=== PATIENT | male | born 1960 | race Caucasian/White ===

== ENCOUNTER 2017-09-23 00:35 | Emergency (ER) | payer OTHER ==
[~2017-09-23] VITALS: Ht 172.7 cm; Wt 105.0 kg
--- NOTE | 2017-09-23 00:47 | PD ---
HPI Chief Complaint: overdose/ba Time Seen by Provider: 00:45 Travel History International Travel<30 days: No Contact w/Intl Traveler<30days: No Traveled to known affect area: No History of Present Illness HPI 49-year-old male with history of alcohol dependency and depression presents to emergency department under Sunshine act for psychiatric evaluation. Patient states that he has been drinking a large amount of alcohol. He took a handful of Xanax. He tells me that he "wants to ." Is asking me to "just let him ." Patient denies any recent illnesses, fever, or chills. He is poor offering any medical history. Denies any acute medical needs at this time. [facility] [place] Past Medical History Medical History: Unable to Obtain Social History Alcohol Use: Yes Tobacco Use: Yes Allergies-Medications (Allergen,Severity, Reaction): Coded Allergies: No Allergy Information Available (Unverified , 09/23/17) Reported Meds & Prescriptions Reported Meds & Active Scripts Active Active Prescriptions or Reported Medications Unobtainable Review of Systems Except as stated in HPI: all other systems reviewed are Neg Physical Exam Narrative GENERAL: Well-nourished male patient, acutely intoxicated with slurred speech and a unsteady gait, but in no acute distress. SKIN: Focused skin assessment warm/dry. 6 centimeter laceration the posterior right elbow. Bleeding is controlled. HEAD: Atraumatic. Normocephalic. EYES: Pupils equal and round. No scleral icterus. No injection or drainage. ENT: No nasal bleeding or discharge. Mucous membranes pink and moist. NECK: Trachea midline. No JVD. CARDIOVASCULAR: Tachycardic rate and irregular rhythm. RESPIRATORY: No accessory muscle use. Clear to auscultation. Breath sounds equal bilaterally. GASTROINTESTINAL: Abdomen soft, non-tender, nondistended. Hepatic and splenic margins not palpable. MUSCULOSKELETAL: No obvious deformities. No clubbing. No cyanosis. No edema. NEUROLOGICAL: Awake. I am unable to assess cranial nerves. Patient is moving all extremities. Slurred speech. Data Data Last Documented VS Vital Signs Date Time Temp Pulse Resp B/P (MAP) Pulse Ox O2 Delivery O2 Flow Rate FiO2 09/23/17 04:30 112 20 137/73 (94) 98 Nasal Cannula 2.00 09/23/17 01:34 98.4 Orders Orders Complete Blood Count With Diff (09/23/17 00:47) Comprehensive Metabolic Panel (09/23/17 00:47) Electrocardiogram (09/23/17 00:47) Oximetry (09/23/17 00:47) Iv Access Insert/Monitor (09/23/17 00:47) Ecg Monitoring (09/23/17 00:47) Psych Screen (09/23/17 00:47) Blood Glucose (09/23/17 00:47) Drug Screen, Random Urine (09/23/17 00:47) Alcohol (Ethanol) (09/23/17 00:47) Salicylates (Aspirin) (09/23/17 00:47) Tylenol (Acetaminophen) (09/23/17 00:47) Restraints Violent (09/23/17 01:00) Haloperidol Inj (Haldol Inj) (09/23/17 01:00) Sodium Chlor 0.9% 1000 Ml Inj (Ns 1000 M (09/23/17 01:30) Diltiazem Inj (Cardizem Inj) (09/23/17 02:45) Diltiazem Inj (Cardizem Inj) (09/23/17 03:00) Labs Laboratory Tests Test 09/23/17 01:15 White Blood Count 8.9 TH/MM3 Red Blood Count 4.92 MIL/MM3 Hemoglobin 16.8 GM/DL Hematocrit 47.6 % Mean Corpuscular Volume 96.8 FL Mean Corpuscular Hemoglobin 34.1 PG Mean Corpuscular Hemoglobin Concent 35.2 % Red Cell Distribution Width 13.1 % Platelet Count 189 TH/MM3 Mean Platelet Volume 8.4 FL Neutrophils (%) (Auto) 50.7 % Lymphocytes (%) (Auto) 38.4 % Monocytes (%) (Auto) 8.9 % Eosinophils (%) (Auto) 1.1 % Basophils (%) (Auto) 0.9 % Neutrophils # (Auto) 4.5 TH/MM3 Lymphocytes # (Auto) 3.4 TH/MM3 Monocytes # (Auto) 0.8 TH/MM3 Eosinophils # (Auto) 0.1 TH/MM3 Basophils # (Auto) 0.1 TH/MM3 CBC Comment DIFF FINAL Differential Comment Blood Urea Nitrogen 14 MG/DL Creatinine 0.82 MG/DL Random Glucose 134 MG/DL Total Protein 8.1 GM/DL Albumin 3.9 GM/DL Calcium Level 8.1 MG/DL Alkaline Phosphatase 106 U/L Aspartate Amino Transf (AST/SGOT) 35 U/L Alanine Aminotransferase (ALT/SGPT) 45 U/L Total Bilirubin 0.2 MG/DL Sodium Level 140 MEQ/L Potassium Level 3.9 MEQ/L Chloride Level 108 MEQ/L Carbon Dioxide Level 21.8 MEQ/L Anion Gap 10 MEQ/L Estimat Glomerular Filtration Rate 96 ML/MIN Salicylates Level 4.0 MG/DL Urine Opiates Screen NEG Acetaminophen Level LESS THAN 2.0 MCG/ML Urine Barbiturates Screen NEG Urine Amphetamines Screen NEG Urine Benzodiazepines Screen NEG Urine Cocaine Screen NEG Urine Cannabinoids Screen NEG Ethyl Alcohol Level 313 MG/DL MDM Medical Decision Making Medical Screen Exam Complete: Yes Emergency Medical Condition: Yes Medical Record Reviewed: Yes Differential Diagnosis Mood disorder versus personality disorder versus adjustment reaction disorder versus substance abuse Narrative Course 49-year-old male presents to emergency department for evaluation under Sunshine. Patient alleges that he took a handful of Xanax. He is not how much this is. This is in addition to drinking large amount alcohol. He does report this as an active attempt to end his life. Lab work is complete and reviewed without any acute concern. I discussed the patient my attending physician. EKG is with A. fib with RVR. Patient was given Cardizem bolus and temporalis was draped with any increases 120-150 bpm. Patient is given additional bolus and heart rate has slowed to 100 -120 bpm. Patient is denying any chest or tightness. No shortness of breath. He'll be observed until 6 AM Auch time he' ll be medically cleared for psychiatric screening for further evaluation and disposition. Mental health screening discussed with the patient. Psychiatric screen ordered. 0600 patient is resting comfortably. He is arousable. He is more cooperative. He does confirm history of A. fib. He is medically cleared to undergo psychiatric screening for further evaluation and disposition. Procedures Procedure Narrative LACERATION LOCATION: Elbow LENGTH:6 centimeters NUMBER OF STITCHES/VILLA: 4 Villa REPAIR: The area of the laceration was prepped with Betadine and sterilely draped. The wound was copiously irrigated and explored without evidence of foreign body, tendon injury or neurovascular injury. The wound was closed using villa. This was a single layer repair. Patient tolerated this well. Diagnosis Primary Impression: Substance induced mood disorder Additional Impression: A-fib Qualified Codes: I48.91 - Unspecified atrial fibrillation Scripts Unable to Obtain Active Prescriptions or Reported Meds Condition: Seema Craig Sep 23, 2017 00:46
[2017-09-23] MEDS ORDERED: HALOPERIDOL LACTATE 5 MG/ML AMP IM ONE (01:00)
[2017-09-23 01:29] LABS: AUTOMATED NEUTROPHIL # 4.5 TH/MM3 (1.8-7.7); BASOPHIL # 0.1 TH/MM3 (0-0.2); BASOPHIL % 0.9 % (0.0-2.0); EOSINOPHIL # 0.1 TH/MM3 (0-0.4); EOSINOPHIL % 1.1 % (0.0-4.0); HEMATOCRIT 47.6 % (39.0-51.0); HEMOGLOBIN 16.8 GM/DL (13.0-17.0); LYMPH % 38.4 % (9.0-44.0); LYMPHOCYTE # 3.4 TH/MM3 (1.0-4.8); MEAN CELL VOLUME 96.8 FL (80.0-100.0); MEAN CORPUSCULAR HEMOGLOBIN 34.1 PG (27.0-34.0); MEAN CORPUSCULAR HGB CONC 35.2 % (32.0-36.0); MEAN PLATELET VOLUME 8.4 FL (7.0-11.0); MONO % 8.9 % (0.0-8.0); MONOCYTE # 0.8 TH/MM3 (0-0.9); NEUT % 50.7 % (16.0-70.0); PLATELET COUNT 189 TH/MM3 (150-450); RED BLOOD COUNT 4.92 MIL/MM3 (4.50-5.90); RED CELL DISTRIBUTION WIDTH 13.1 % (11.6-17.2); WHITE BLOOD COUNT 8.9 TH/MM3 (4.0-11.0)
[2017-09-23] MEDS ORDERED: SODIUM CHLOR 0.9% 1000 ML INJ 1,000 ML IV ONE (01:30)
[2017-09-23 01:34] VITALS: BP 131/84; PULSE 142; RESP 20; TEMP 98.4; O2SAT 94
[2017-09-23 01:45] VITALS: O2SAT 96
[2017-09-23 01:56] LABS: ALKALINE PHOSPHATASE 106 U/L (45-117); ALT (GPT) 45 U/L (12-78); TOTAL BILIRUBIN ADULT 0.2 MG/DL (0.2-1.0); TOTAL PROTEIN 8.1 GM/DL (6.4-8.2)
[2017-09-23 01:57] LABS: ALBUMIN 3.9 GM/DL (3.4-5.0); AST (GOT) 35 U/L (15-37); BICARBONATE 21.8 MEQ/L (21.0-32.0); BLOOD UREA NITROGEN 14 MG/DL (7-18); CALCIUM 8.1 MG/DL (8.5-10.1); CHLORIDE 108 MEQ/L (98-107); CREATININE 0.82 MG/DL (0.60-1.30); GLOMERULAR FILTRATION RATE 96 ML/MIN (>89); GLUCOSE,RANDOM 134 MG/DL (74-106); SODIUM (NA) 140 MEQ/L (136-145)
[2017-09-23 01:59] LABS: ACETAMINOPHEN LESS THAN 2.0 MCG/ML (10.0-30.0)
[2017-09-23 02:45] VITALS: BP 139/59; PULSE 135; RESP 22; O2SAT 99
[2017-09-23] MEDS ORDERED: DILTIAZEM HCL 25 MG/5 ML VIAL IV ONE ×2 (02:45→03:00)
[2017-09-23 03:00] VITALS: BP 164/68; PULSE 123; RESP 20; O2SAT 99
[2017-09-23 04:30] VITALS: BP 137/73; PULSE 112; RESP 20; O2SAT 98
[2017-09-23] MEDS ORDERED: METOPROLOL TARTRATE 50 MG TAB PO ONE (07:30)
[2017-09-23 07:36] VITALS: BP 121/58; PULSE 130; RESP 17; O2SAT 94
--- NOTE | 2017-09-23 14:22 | EKG ---
Date Performed: 09/23/2017 Time Performed: 01:59:39 PTAGE: 57 years EKG: ATRIAL FIBRILLATION WITH RAPID VENTRICULAR RESPONSE LEFT ANTERIOR FASCICULAR BLOCK Nonspeci fic ST and T wave changes, cannot entirely exclude a prior inferior wall myocardial infarction as the re is no prior tracing for comparison ABNORMAL ECG NO PREVIOUS TRACING DOCTOR: Kriss Carson Interpretating Date/Time 09/23/2017 14:20:05
--- NOTE | 2017-09-23 14:41 | PD ---
History of Present Illness Chief Complaint: Psychiatric Symptoms Time Seen by Provider: 13:50 Travel History International Travel<30 Days: No Contact w/Intl Traveler<30days: No Known affected area: No Legal Status Legal Status: Sunshine Act Sunshine Act Signed By: Gloria Sunshine Act Comment: Ofc. John Srinivasan #[id number] History of Present Illness: History of Present Illness HPI 49-year-old male with no reported psychiatric history and history of alcohol abuse who presents to emergency department under Sunshine act initiated by law enforcement. The Sunshine act report alleges that he stated that he has been drinking a large amount of alcohol . His girlfriend reported that he took a handful of Xanax. On arrival to the emergency department he told the ED provider that he "wants to ." Is asking me to "just let him ." The patient was intoxicated at the time of his arrival and his blood alcohol level on presentation was 313. Patient was monitored in secure environment and presented no behavioral concerns and no suicidality. Electronic medical record is reviewed. No previous contact with [facility]. The patient is seen in J pod. He is clinically sober at this time. No signs of any withdrawal. He is alert, oriented and calm. He denies that he took any extra medication and that he took his usual dosage of Xanax along with other 5 pills that are prescribed. He explains that his girlfriend thought he took a handful of pills. The patient vehemently denies this. He does not present any psychosis, no luana. He denies that he has any symptoms of depression. He denies suicidal or homicidal ideation intent or plan. PFSH Past Medical History Medical History: Unable to Obtain Diabetes: No Patient Takes Glucophage: No Diminished Hearing: No Hepatitis: Yes (C) Immunizations Current: Yes Tetanus Vaccination: > 5 Years Influenza Vaccination: No Past Surgical History Surgical History: No Previous Surgery Psychiatric History Psychiatric History Hx Psychiatric Treatment: Denies any psychiatric history. Denies any history of suicide attempts. History of Inpatient Treatment: No Guns or firearms in home: No Social History Born in [facility]. He is and his in 2008. 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 He is living by himself. Hx Alcohol Use: Yes Hx Tobacco Use: Yes Hx Substance Use: Yes (1 ppd cigarettes, beer once every 2 weeks--8 beers at a time.) Substance Use Type: Alcohol, Nicotine/Cigarettes Hx of Substance Use Treatment: Yes Family Psychiatric History Denies any. Allergies-Medications (Allergen,Severity, Reaction): Coded Allergies: No Allergy Information Available (Unverified , 09/23/17) Reported Meds & Prescriptions Reported Meds & Active Scripts Active Active Prescriptions or Reported Medications Unobtainable Review of Systems Except as stated in HPI: all other systems reviewed are Neg Mental Status Examination Appearance: Appropriate (In hospital scrubs) Consciousness: Alert Orientation: x4 Motor Activity: Normal gait Speech: Unremarkable Language: Adequate Fund of Knowledge: Adequate Attention and Concentration: Adequate Memory: Unremarkable Mood: Appropriate Affect: Appropriate Thought Process & Associations: Intact, Logical, Goal directed Thought Content: Appropriate Hallucination Type: None Delusion Type: None Suicidal Ideation: No Suicidal Plan: No Suicidal Intention: No Homicidal Ideation: No Homicidal Plan: No Homicidal Intention: No Insight: Adequate Judgment: Adequate MDM Medical Decision Making Medical Record Reviewed: Yes Assessment/Plan 57-year-old male with no previous psychiatric history and history of alcohol abuse who presents under Sunshine act initiated I law enforcement after his girlfriend believes that he took too much Xanax. The patient denies that he took any additional medication other than what is prescribed to him. He denies any suicidal or homicidal ideation intent or plan. He admits to drinking heavily but that he only drinks 1 they out of the week. He is provided psychoeducation. He is provided information on AA. The patient does not present any evidence of any unstable mental illness. He is future oriented and tells me he has several appointments with his anime designer in the coming weeks. He does not meet criteria for Sunshine act. The Sunshine act is lifted he is psychiatrically clear for discharge from the ED. Orders Orders Complete Blood Count With Diff (09/23/17 00:47) Comprehensive Metabolic Panel (09/23/17 00:47) Electrocardiogram (09/23/17 00:47) Oximetry (09/23/17 00:47) Iv Access Insert/Monitor (09/23/17 00:47) Ecg Monitoring (09/23/17 00:47) Psych Screen (09/23/17 00:47) Blood Glucose (09/23/17 00:47) Drug Screen, Random Urine (09/23/17 00:47) Alcohol (Ethanol) (09/23/17 00:47) Salicylates (Aspirin) (09/23/17 00:47) Tylenol (Acetaminophen) (09/23/17 00:47) Restraints Violent (09/23/17 01:00) Haloperidol Inj (Haldol Inj) (09/23/17 01:00) Sodium Chlor 0.9% 1000 Ml Inj (Ns 1000 M (09/23/17 01:30) Diltiazem Inj (Cardizem Inj) (09/23/17 02:45) Diltiazem Inj (Cardizem Inj) (09/23/17 03:00) Metoprolol Tartrate (Lopressor) (09/23/17 07:30) Diet Regular Basic (09/23/17 Breakfast) Metoprolol Tartrate (Lopressor) (09/23/17 21:00) Diet Regular Basic (09/23/17 Lunch) Results Vital Signs Date Time Temp Pulse Resp B/P (MAP) Pulse Ox O2 Delivery O2 Flow Rate FiO2 09/23/17 07:36 130 17 121/58 (79) 94 Room Air 09/23/17 04:30 112 20 137/73 (94) 98 Nasal Cannula 2.00 09/23/17 03:00 123 20 164/68 (100) 99 Nasal Cannula 2.00 09/23/17 02:45 135 22 139/59 (85) 99 Nasal Cannula 2.00 09/23/17 01:45 96 09/23/17 01:34 98.4 142 20 131/84 (100) 94 Laboratory Tests Test 09/23/17 01:15 White Blood Count 8.9 Red Blood Count 4.92 Hemoglobin 16.8 Hematocrit 47.6 Mean Corpuscular Volume 96.8 Mean Corpuscular Hemoglobin 34.1 Mean Corpuscular Hemoglobin Concent 35.2 Red Cell Distribution Width 13.1 Platelet Count 189 Mean Platelet Volume 8.4 Neutrophils (%) (Auto) 50.7 Lymphocytes (%) (Auto) 38.4 Monocytes (%) (Auto) 8.9 Eosinophils (%) (Auto) 1.1 Basophils (%) (Auto) 0.9 Neutrophils # (Auto) 4.5 Lymphocytes # (Auto) 3.4 Monocytes # (Auto) 0.8 Eosinophils # (Auto) 0.1 Basophils # (Auto) 0.1 CBC Comment DIFF FINAL Differential Comment Blood Urea Nitrogen 14 Creatinine 0.82 Random Glucose 134 Total Protein 8.1 Albumin 3.9 Calcium Level 8.1 Alkaline Phosphatase 106 Aspartate Amino Transf (AST/SGOT) 35 Alanine Aminotransferase (ALT/SGPT) 45 Total Bilirubin 0.2 Sodium Level 140 Potassium Level 3.9 Chloride Level 108 Carbon Dioxide Level 21.8 Anion Gap 10 Estimat Glomerular Filtration Rate 96 Salicylates Level 4.0 Urine Opiates Screen NEG Acetaminophen Level LESS THAN 2.0 Urine Barbiturates Screen NEG Urine Amphetamines Screen NEG Urine Benzodiazepines Screen NEG Urine Cocaine Screen NEG Urine Cannabinoids Screen NEG Ethyl Alcohol Level 313 Diagnosis Primary Impression: Alcohol abuse Additional Impressions: Substance induced mood disorder A-fib Psychiatrically Cleared: Yes Med/ Other Pt Specific Info: No Meds Exist/No RX given Prescriptions Unable to Obtain Active Prescriptions or Reported Meds Disposition: 01 DISCHARGE HOME Condition: Stable Problem Qualifiers Additional Impressions: A-fib Qualified Codes: I48.91 - Unspecified atrial fibrillation Elisha Jones Sep 23, 2017 14:41
--- NOTE | 2017-09-23 14:53 | PD ---
Data Data Last Documented VS Vital Signs Date Time Temp Pulse Resp B/P (MAP) Pulse Ox O2 Delivery O2 Flow Rate FiO2 09/23/17 07:36 130 17 121/58 (79) 94 Room Air 09/23/17 04:30 2.00 09/23/17 01:34 98.4 Orders Orders Complete Blood Count With Diff (09/23/17 00:47) Comprehensive Metabolic Panel (09/23/17 00:47) Electrocardiogram (09/23/17 00:47) Oximetry (09/23/17 00:47) Iv Access Insert/Monitor (09/23/17 00:47) Ecg Monitoring (09/23/17 00:47) Psych Screen (09/23/17 00:47) Blood Glucose (09/23/17 00:47) Drug Screen, Random Urine (09/23/17 00:47) Alcohol (Ethanol) (09/23/17 00:47) Salicylates (Aspirin) (09/23/17 00:47) Tylenol (Acetaminophen) (09/23/17 00:47) Restraints Violent (09/23/17 01:00) Haloperidol Inj (Haldol Inj) (09/23/17 01:00) Sodium Chlor 0.9% 1000 Ml Inj (Ns 1000 M (09/23/17 01:30) Diltiazem Inj (Cardizem Inj) (09/23/17 02:45) Diltiazem Inj (Cardizem Inj) (09/23/17 03:00) Metoprolol Tartrate (Lopressor) (09/23/17 07:30) Diet Regular Basic (09/23/17 Breakfast) Metoprolol Tartrate (Lopressor) (09/23/17 21:00) Diet Regular Basic (09/23/17 Lunch) Ed Discharge Order (09/23/17 14:52) Labs Laboratory Tests Test 09/23/17 01:15 White Blood Count 8.9 TH/MM3 Red Blood Count 4.92 MIL/MM3 Hemoglobin 16.8 GM/DL Hematocrit 47.6 % Mean Corpuscular Volume 96.8 FL Mean Corpuscular Hemoglobin 34.1 PG Mean Corpuscular Hemoglobin Concent 35.2 % Red Cell Distribution Width 13.1 % Platelet Count 189 TH/MM3 Mean Platelet Volume 8.4 FL Neutrophils (%) (Auto) 50.7 % Lymphocytes (%) (Auto) 38.4 % Monocytes (%) (Auto) 8.9 % Eosinophils (%) (Auto) 1.1 % Basophils (%) (Auto) 0.9 % Neutrophils # (Auto) 4.5 TH/MM3 Lymphocytes # (Auto) 3.4 TH/MM3 Monocytes # (Auto) 0.8 TH/MM3 Eosinophils # (Auto) 0.1 TH/MM3 Basophils # (Auto) 0.1 TH/MM3 CBC Comment DIFF FINAL Differential Comment Blood Urea Nitrogen 14 MG/DL Creatinine 0.82 MG/DL Random Glucose 134 MG/DL Total Protein 8.1 GM/DL Albumin 3.9 GM/DL Calcium Level 8.1 MG/DL Alkaline Phosphatase 106 U/L Aspartate Amino Transf (AST/SGOT) 35 U/L Alanine Aminotransferase (ALT/SGPT) 45 U/L Total Bilirubin 0.2 MG/DL Sodium Level 140 MEQ/L Potassium Level 3.9 MEQ/L Chloride Level 108 MEQ/L Carbon Dioxide Level 21.8 MEQ/L Anion Gap 10 MEQ/L Estimat Glomerular Filtration Rate 96 ML/MIN Salicylates Level 4.0 MG/DL Urine Opiates Screen NEG Acetaminophen Level LESS THAN 2.0 MCG/ML Urine Barbiturates Screen NEG Urine Amphetamines Screen NEG Urine Benzodiazepines Screen NEG Urine Cocaine Screen NEG Urine Cannabinoids Screen NEG Ethyl Alcohol Level 313 MG/DL MDM Supervised Visit with ANÍBAL: Yes Narrative Course 57-year-old man, suicidal expressions while intoxicated. Reportedly Now retracting. Seen by psychiatry. I spoke with the towboat engineer. They're recommending discharge and outpatient follow-up. Diagnosis Primary Impression: Alcohol abuse Additional Impressions: Substance induced mood disorder A-fib Qualified Codes: I48.91 - Unspecified atrial fibrillation Patient Instructions: General Instructions Departure Forms: Tests/Procedures Additional Instruction: Follow up with primary care practice. Follow up with Calixto Ocasio. Return to ED for any worsening. Scripts Unable to Obtain Active Prescriptions or Reported Meds Disposition: 01 DISCHARGE HOME Condition: Stable Joe Hernandez MD Sep 23, 2017 14:53
[2017-09-23] MEDS ORDERED: METOPROLOL TARTRATE 50 MG TAB PO SCH (21:00)
== END 2017-09-23 15:08 | disposition home or self-care (01) ==
LOC: NEPD 00:35 → NEPJ 15:08
DX: F19.94 Other psychoactive substance use, unspecified with psychoactive substance-induced mood disorder (principal); I48.91 Unspecified atrial fibrillation; F17.210 Nicotine dependence, cigarettes, uncomplicated; F10.229 Alcohol dependence with intoxication, unspecified; Y90.8 Blood alcohol level of 240 mg/100 ml or more; S51.011A Laceration without foreign body of right elbow, initial encounter; X58.XXXA Exposure to other specified factors, initial encounter
CPT/HCPCS: 12002; 80053; 80307; 85025; 93005; 96361; 96372; 96374; 99285; J1630; J7030